=== PATIENT | male | born 1945 | race African-American/Black ===

== ENCOUNTER 2021-07-05 15:57 | Inpatient (IN) ==
[2021-07-05] MEDS ORDERED: ONDANSETRON 4 MG/2 ML VIAL IV PRN (20:23)
[2021-07-05] MEDS ORDERED: hydrALAZINE 20 MG/1 ML VIAL IV PRN (20:23)
[2021-07-05] MEDS ORDERED: GLUCAGON 1 MG VIAL IM PRN (20:23)
[2021-07-05] MEDS ORDERED: DEXTROSE 50% 25 GM/50 ML SYRINGE IV PRN (20:23)
[2021-07-05] MEDS ORDERED: ACETAMINOPHEN 325 MG TABLET PO PRN (20:23)
[2021-07-05 21:43] LABS: Basophils % 0.3 % (0.0-0.8); Eosinophils # 0.1 10*3/uL (0.0-0.87); Eosinophils % 0.6 % (0.00-10.9); Hematocrit 39.3 VOL% (42.0-52.0); Hemoglobin 11.4 GM/DL (14.0-18.0); Immature Granulocytes % 0.8 %; Immature Granulocytes Absolute 0.09 #; Lymphocytes # 1.7 10*3/uL (1.4-4.0); Lymphocytes % 15.2 % (21.2-54.2); Mean Corpuscular Volume 90.8 FL (87-102); Mean Platelet Volume 13.4 FL (9.6-12.0); Monocytes % 16.3 % (1.7-12.7); Neutrophils % 66.8 % (38.7-73.9); Platelet Count 247 T/CUMM (130-400); Red Blood Count 4.33 MC/CUMM (3.8-5.5); Red Cell Distribution Width 14.9 % (9.3-17.3)
[2021-07-05 21:50] LABS: Eosinophils 1 % (0-10); Hypochromasia Slight; Lymphocytes 16 % (20-55); Platelet Estimate Adequate; Segmented Neutrophils 67 % (50-85); Target Cells Few; Total Cells Counted 100
[2021-07-05 21:50] LABS: Alanine Aminotransferase 26 U/L (16-61); Albumin 2.8 G/DL (3.4-5.0); Alkaline Phosphatase 61 U/L (45-117); Aspartate Amino Transferase 11 U/L (0-37); Bilirubin,Total < 0.39 MG/DL (0.20-1.00); Blood Urea Nitrogen 33 MG/DL (7-18); Carbon Dioxide 30 MMOL/L (21-32); Estimated Glom Filtration Rate 85 ML/MIN; Glucose 230 MG/DL (74-106); Osmolality,Calculated 303.6 MOS/KG (273-304); Potassium 4.3 MMOL/L (3.5-5.1); Sodium 146 MMOL/L (136-145); Thyroid Stimulating Hormone 0.211 uIU/ml (0.358-3.74); Total Protein 8.1 G/DL (6.4-8.2)
[2021-07-05] MEDS: SODIUM CHLORIDE 0.9% 1,000 ML IV SCH (21:57)
[2021-07-05] MEDS: INSULIN REGULAR 100 UNIT/ML SUBCUT SCH (21:57)
[2021-07-05] MEDS: PIPERACILLIN/TAZOBACTAM 3,375 MG in SODIUM CHLORIDE 0.9% 100 ML IV SCH (21:57)
[2021-07-05] MEDS: ENOXAPARIN 40 MG/0.4 ML SYRINGE SUBCUT SCH (21:59)
[2021-07-06 03:11] LABS: Alanine Aminotransferase 23 U/L (16-61); Albumin 2.9 G/DL (3.4-5.0); Alkaline Phosphatase 62 U/L (45-117); Aspartate Amino Transferase 14 U/L (0-37); Bilirubin,Total < 0.39 MG/DL (0.20-1.00); Blood Urea Nitrogen 34 MG/DL (7-18); Calcium 9.1 MG/DL (8.5-10.1); Carbon Dioxide 32 MMOL/L (21-32); Estimated Glom Filtration Rate 78 ML/MIN; Glucose 216 MG/DL (74-106); Osmolality,Calculated 300.8 MOS/KG (273-304); Potassium 4.3 MMOL/L (3.5-5.1); Sodium 144 MMOL/L (136-145)
[2021-07-06 03:12] LABS: Basophils % 0.3 % (0.0-0.8); Eosinophils # 0.1 10*3/uL (0.0-0.87); Eosinophils % 0.9 % (0.00-10.9); Hematocrit 39.7 VOL% (42.0-52.0); Hemoglobin 11.5 GM/DL (14.0-18.0); Immature Granulocytes % 0.5 %; Immature Granulocytes Absolute 0.06 #; Lymphocytes # 1.9 10*3/uL (1.4-4.0); Lymphocytes % 16.1 % (21.2-54.2); Mean Corpuscular Volume 90.4 FL (87-102); Mean Platelet Volume 13.1 FL (9.6-12.0); Monocytes % 15.1 % (1.7-12.7); Neutrophils % 67.1 % (38.7-73.9); Platelet Count 273 T/CUMM (130-400); Red Blood Count 4.39 MC/CUMM (3.8-5.5); Red Cell Distribution Width 14.8 % (9.3-17.3); White Blood Count 11.7 T/CUMM (4-12)
[2021-07-06 03:39] LABS: Free T4 (Free Thyroxine) 1.14 NG/DL (0.76-1.46)
[2021-07-06] MEDS: PIPERACILLIN/TAZOBACTAM 3,375 MG in SODIUM CHLORIDE 0.9% 100 ML IV SCH ×3 (06:32→20:34)
[2021-07-06] MEDS: SODIUM CHLORIDE 0.9% 1,000 ML IV SCH ×2 (06:37→20:34)
[2021-07-06] MEDS ORDERED: ALBUTEROL/IPRATROPIUM 3 ML NEB RESP TX PRN (07:40)
[2021-07-06] MEDS: PANTOPRAZOLE 40 MG VIAL IV SCH (10:15)
[2021-07-06] MEDS: INSULIN REGULAR 100 UNIT/ML SUBCUT SCH ×4 (10:16→20:33)
[2021-07-06] MEDS: carvediloL 12.5 MG TABLET PO SCH ×2 (10:16→17:00)
[2021-07-06] MEDS: CARBIDOPA/LEVODOPA 25-100 MG TABLET PO SCH (10:16)
[2021-07-06] MEDS: FERROUS SULFATE 325 MG TABLET PO SCH ×2 (10:16→17:00)
[2021-07-06] MEDS: THYROID 60 MG TABLET PO SCH (10:16)
[2021-07-06] MEDS: ASPIRIN EC 81 MG TABLET PO SCH (10:16)
[2021-07-06] MEDS: TAMSULOSIN 0.4 MG CAPSULE PO SCH (10:16)
[2021-07-06] MEDS ORDERED: BENZOCAINE 20% SPRAY 57 GM CAN TOP PRN (11:29)
[2021-07-06] MEDS: FINASTERIDE 5 MG TABLET PO SCH (17:00)
[2021-07-06] MEDS: ENOXAPARIN 40 MG/0.4 ML SYRINGE SUBCUT SCH (20:34)
[2021-07-07 00:02] LABS: Bacteria,Urine Occasional /HPF (Few); Bilirubin,Urine Negative (Negative); Blood, Urine Negative (Negative); Glucose,Urine (UA) 50 mg/dL (Negative); Hyaline Casts,Urine 9 /LPF (0-3); Ketones,Urine 20 mg/dL (Negative); Mucus,Urine Occasional /LPF (Occasional); Nitrite,Urine Negative (Negative); Protein,Urine Negative; RBC,Urine 1 /HPF (0-4); Squamous Epithelial Cell,Urine Occasional /HPF (0-10); Urine Appearance CLOUDY (Clear); Urine Color Amber (Yellow); Urine Specific Gravity 1.024 (1.001-1.035); Urine Urobilinogen < 2.0 EU/DL (0.2-1.0)
[2021-07-07] MEDS: SODIUM CHLORIDE 0.9% 1,000 ML IV SCH ×2 (01:01→13:44)
[2021-07-07] MEDS: PIPERACILLIN/TAZOBACTAM 3,375 MG in SODIUM CHLORIDE 0.9% 100 ML IV SCH ×3 (05:13→20:15)
[2021-07-07] MEDS: MORPHINE 2 MG/1 ML SYRINGE IV PRN ×2 (05:42→20:14)
[2021-07-07 07:06] LABS: Calcium 8.8 MG/DL (8.5-10.1); Osmolality,Calculated 309.1 MOS/KG (273-304); Potassium 4.3 MMOL/L (3.5-5.1)
[2021-07-07 07:35] LABS: Basophils % 0.3 % (0.0-0.8); Eosinophils # 0.2 10*3/uL (0.0-0.87); Eosinophils % 1.5 % (0.00-10.9); Hematocrit 39.7 VOL% (42.0-52.0); Immature Granulocytes Absolute 0.11 #; Lymphocytes # 1.9 10*3/uL (1.4-4.0); Lymphocytes % 16.6 % (21.2-54.2); Mean Corpuscular Volume 92.5 FL (87-102); Monocytes % 13.8 % (1.7-12.7); Neutrophils % 66.8 % (38.7-73.9); Platelet Count 232 T/CUMM (130-400); Red Blood Count 4.29 MC/CUMM (3.8-5.5); White Blood Count 11.5 T/CUMM (4-12)
[2021-07-07 07:37] LABS: Hemoglobin 11.5 GM/DL (14.0-18.0)
[2021-07-07] MEDS ORDERED: NON-FORMULARY MEDICATION (Nifedipine 60 mg Tablet Extended Release) PO SCH (09:00)
[2021-07-07] MEDS: THYROID 60 MG TABLET PO SCH (10:06)
[2021-07-07] MEDS: PANTOPRAZOLE 40 MG VIAL IV SCH (10:06)
[2021-07-07] MEDS: TAMSULOSIN 0.4 MG CAPSULE PO SCH (10:07)
[2021-07-07] MEDS: CARBIDOPA/LEVODOPA 25-100 MG TABLET PO SCH (10:07)
[2021-07-07] MEDS: INSULIN REGULAR 100 UNIT/ML SUBCUT SCH ×4 (10:07→20:24)
[2021-07-07] MEDS: FERROUS SULFATE 325 MG TABLET PO SCH ×2 (10:07→16:02)
[2021-07-07] MEDS: carvediloL 12.5 MG TABLET PO SCH ×2 (10:07→16:02)
[2021-07-07] MEDS: ASPIRIN EC 81 MG TABLET PO SCH (10:07)
[2021-07-07] MEDS: FINASTERIDE 5 MG TABLET PO SCH (10:07)
[2021-07-07] MEDS: SODIUM CHLORIDE 23.4% CONC INJ 38.5 MEQ in STERILE WATER INJ 1,000 ML IV SCH ×2 (11:55→20:15)
[2021-07-07] MEDS: ENOXAPARIN 40 MG/0.4 ML SYRINGE SUBCUT SCH (20:15)
[2021-07-08] MEDS: PIPERACILLIN/TAZOBACTAM 3,375 MG in SODIUM CHLORIDE 0.9% 100 ML IV SCH ×3 (04:50→20:26)
[2021-07-08] MEDS: SODIUM CHLORIDE 23.4% CONC INJ 38.5 MEQ in STERILE WATER INJ 1,000 ML IV SCH (05:00)
[2021-07-08 05:42] LABS: Calcium 8.5 MG/DL (8.5-10.1); Osmolality,Calculated 308.9 MOS/KG (273-304); Potassium 4.2 MMOL/L (3.5-5.1)
[2021-07-08 06:37] LABS: Basophils # 0.1 10*3/uL (0.0-0.2); Basophils % 0.6 % (0.0-0.8); Eosinophils # 0.3 10*3/uL (0.0-0.87); Eosinophils % 2.1 % (0.00-10.9); Hematocrit 37.4 VOL% (42.0-52.0); Hemoglobin 10.8 GM/DL (14.0-18.0); Immature Granulocytes % 1.3 %; Immature Granulocytes Absolute 0.16 #; Lymphocytes # 2.4 10*3/uL (1.4-4.0); Lymphocytes % 19.3 % (21.2-54.2); Mean Corpuscular HGB Conc 28.9 GM/DL (32-36); Mean Corpuscular Volume 92.1 FL (87-102); Monocytes % 11.4 % (1.7-12.7); Neutrophils % 65.3 % (38.7-73.9); Platelet Count 209 T/CUMM (130-400); Red Blood Count 4.06 MC/CUMM (3.8-5.5); Red Cell Distribution Width 14.9 % (9.3-17.3); White Blood Count 12.6 T/CUMM (4-12)
[2021-07-08] MEDS: INSULIN REGULAR 100 UNIT/ML SUBCUT SCH ×4 (07:30→20:10)
[2021-07-08] MEDS: TAMSULOSIN 0.4 MG CAPSULE PO SCH (10:34)
[2021-07-08] MEDS: FERROUS SULFATE 325 MG TABLET PO SCH ×2 (10:34→17:55)
[2021-07-08] MEDS: CARBIDOPA/LEVODOPA 25-100 MG TABLET PO SCH (10:34)
[2021-07-08] MEDS: PANTOPRAZOLE 40 MG VIAL IV SCH (10:34)
[2021-07-08] MEDS: THYROID 60 MG TABLET PO SCH (10:35)
[2021-07-08] MEDS: FINASTERIDE 5 MG TABLET PO SCH (10:35)
[2021-07-08] MEDS: carvediloL 12.5 MG TABLET PO SCH ×2 (10:35→17:55)
[2021-07-08] MEDS: DEXTROSE 5% 1,000 ML IV SCH (10:45)
[2021-07-08] MEDS: ASPIRIN EC 81 MG TABLET PO SCH (12:01)
[2021-07-08] MEDS: ENOXAPARIN 40 MG/0.4 ML SYRINGE SUBCUT SCH (20:26)
[2021-07-08] MEDS: INSULIN GLARGINE 100 UNIT/ML SUBCUT SCH (20:27)
[2021-07-09] MEDS: DEXTROSE 5% 1,000 ML IV SCH ×2 (04:15)
[2021-07-09] MEDS: PIPERACILLIN/TAZOBACTAM 3,375 MG in SODIUM CHLORIDE 0.9% 100 ML IV SCH ×3 (04:15→20:24)
[2021-07-09 07:21] LABS: Calcium 8.1 MG/DL (8.5-10.1); Osmolality,Calculated 285.3 MOS/KG (273-304); Potassium 3.8 MMOL/L (3.5-5.1)
[2021-07-09 07:24] LABS: Basophils % 0.4 % (0.0-0.8); Eosinophils # 0.4 10*3/uL (0.0-0.87); Eosinophils % 3.8 % (0.00-10.9); Hematocrit 34.8 VOL% (42.0-52.0); Immature Granulocytes % 2.1 %; Immature Granulocytes Absolute 0.22 #; Lymphocytes # 2.5 10*3/uL (1.4-4.0); Lymphocytes % 23.4 % (21.2-54.2); Mean Corpuscular HGB Conc 29.3 GM/DL (32-36); Mean Corpuscular Volume 90.9 FL (87-102); Mean Platelet Volume 12.9 FL (9.6-12.0); Monocytes % 10.7 % (1.7-12.7); Neutrophils % 59.6 % (38.7-73.9); Platelet Count 197 T/CUMM (130-400); Red Blood Count 3.83 MC/CUMM (3.8-5.5); Red Cell Distribution Width 14.6 % (9.3-17.3); White Blood Count 10.6 T/CUMM (4-12)
[2021-07-09 07:31] LABS: Hemoglobin 10.2 GM/DL (14.0-18.0)
[2021-07-09 08:09] LABS: Platelet Estimate Normal
[2021-07-09 08:10] LABS: Anisocytosis 1+; Macrocytosis 1+; Target Cells Few
[2021-07-09] MEDS: PANTOPRAZOLE 40 MG VIAL IV SCH (08:25)
[2021-07-09] MEDS: carvediloL 12.5 MG TABLET PO SCH ×2 (08:25→16:27)
[2021-07-09] MEDS: FERROUS SULFATE 325 MG TABLET PO SCH ×2 (08:25→16:27)
[2021-07-09] MEDS: TAMSULOSIN 0.4 MG CAPSULE PO SCH (08:25)
[2021-07-09] MEDS: ASPIRIN EC 81 MG TABLET PO SCH (08:25)
[2021-07-09] MEDS: FINASTERIDE 5 MG TABLET PO SCH (08:25)
[2021-07-09] MEDS: THYROID 60 MG TABLET PO SCH (08:25)
[2021-07-09] MEDS: CARBIDOPA/LEVODOPA 25-100 MG TABLET PO SCH (08:25)
[2021-07-09] MEDS: INSULIN REGULAR 100 UNIT/ML SUBCUT SCH ×4 (08:40→20:29)
[2021-07-09] MEDS: FUROSEMIDE 40 MG TABLET PO SCH (16:27)
[2021-07-09] MEDS: INSULIN GLARGINE 100 UNIT/ML SUBCUT SCH (20:26)
[2021-07-09] MEDS: ENOXAPARIN 40 MG/0.4 ML SYRINGE SUBCUT SCH (20:26)
[2021-07-09] MEDS: POTASSIUM CHLORIDE 20 MEQ TABLET PO SCH (20:26)
[2021-07-10] MEDS: PIPERACILLIN/TAZOBACTAM 3,375 MG in SODIUM CHLORIDE 0.9% 100 ML IV SCH ×3 (04:24→21:42)
[2021-07-10 06:08] LABS: Basophils % 0.3 % (0.0-0.8); Eosinophils # 0.3 10*3/uL (0.0-0.87); Eosinophils % 3.2 % (0.00-10.9); Hematocrit 33.5 VOL% (42.0-52.0); Immature Granulocytes % 0.9 %; Immature Granulocytes Absolute 0.09 #; Lymphocytes # 2.4 10*3/uL (1.4-4.0); Lymphocytes % 24.6 % (21.2-54.2); Mean Corpuscular HGB Conc 29.9 GM/DL (32-36); Mean Corpuscular Volume 89.6 FL (87-102); Monocytes % 9.4 % (1.7-12.7); Neutrophils % 61.6 % (38.7-73.9); Platelet Count 186 T/CUMM (130-400); Red Blood Count 3.74 MC/CUMM (3.8-5.5); Red Cell Distribution Width 14.3 % (9.3-17.3); White Blood Count 9.8 T/CUMM (4-12)
[2021-07-10 06:28] LABS: Calcium 8.2 MG/DL (8.5-10.1); Osmolality,Calculated 281.4 MOS/KG (273-304); Potassium 3.5 MMOL/L (3.5-5.1)
[2021-07-10] MEDS: PANTOPRAZOLE 40 MG VIAL IV SCH (08:51)
[2021-07-10] MEDS: POTASSIUM CHLORIDE 20 MEQ TABLET PO SCH ×2 (08:51→21:41)
[2021-07-10] MEDS: FUROSEMIDE 40 MG TABLET PO SCH ×2 (08:52→16:26)
[2021-07-10] MEDS: THYROID 60 MG TABLET PO SCH (08:52)
[2021-07-10] MEDS: TAMSULOSIN 0.4 MG CAPSULE PO SCH (08:52)
[2021-07-10] MEDS: INSULIN REGULAR 100 UNIT/ML SUBCUT SCH ×4 (08:53→21:40)
[2021-07-10] MEDS: GABAPENTIN 600 MG TABLET PO SCH ×3 (08:53→21:41)
[2021-07-10] MEDS: carvediloL 12.5 MG TABLET PO SCH ×2 (08:53→16:25)
[2021-07-10] MEDS: FINASTERIDE 5 MG TABLET PO SCH (08:53)
[2021-07-10] MEDS: ASPIRIN EC 81 MG TABLET PO SCH (08:53)
[2021-07-10] MEDS: FERROUS SULFATE 325 MG TABLET PO SCH ×2 (08:53→16:25)
[2021-07-10] MEDS: CARBIDOPA/LEVODOPA 25-100 MG TABLET PO SCH (08:53)
[2021-07-10] MEDS: INSULIN GLARGINE 100 UNIT/ML SUBCUT SCH (21:41)
[2021-07-10] MEDS: ENOXAPARIN 40 MG/0.4 ML SYRINGE SUBCUT SCH (21:42)
[2021-07-11] MEDS: PIPERACILLIN/TAZOBACTAM 3,375 MG in SODIUM CHLORIDE 0.9% 100 ML IV SCH (05:14)
[2021-07-11 05:41] LABS: Basophils % 0.3 % (0.0-0.8); Eosinophils # 0.3 10*3/uL (0.0-0.87); Hematocrit 34.3 VOL% (42.0-52.0); Hemoglobin 10.2 GM/DL (14.0-18.0); Immature Granulocytes % 1.8 %; Immature Granulocytes Absolute 0.16 #; Lymphocytes # 2.3 10*3/uL (1.4-4.0); Lymphocytes % 25.4 % (21.2-54.2); Mean Corpuscular HGB Conc 29.7 GM/DL (32-36); Mean Corpuscular Volume 88.9 FL (87-102); Monocytes % 9.1 % (1.7-12.7); Neutrophils % 60.4 % (38.7-73.9); Platelet Count 166 T/CUMM (130-400); Red Blood Count 3.86 MC/CUMM (3.8-5.5); Red Cell Distribution Width 14.2 % (9.3-17.3)
[2021-07-11 06:08] LABS: Calcium 7.8 MG/DL (8.5-10.1); Osmolality,Calculated 283.1 MOS/KG (273-304); Potassium 3.6 MMOL/L (3.5-5.1)
[2021-07-11 06:58] LABS: Eosinophils 5 % (0-10); Lymphocytes 12 % (20-55); Segmented Neutrophils 74 % (50-85); Total Cells Counted 100
[2021-07-11 06:59] LABS: Platelet Estimate Normal
[2021-07-11 07:01] LABS: Microcytosis 1+
[2021-07-11 07:02] LABS: Stomatocytes Few; Target Cells Slight
[2021-07-11 08:06] VITALS: BP 132/50
[2021-07-11] MEDS: INSULIN REGULAR 100 UNIT/ML SUBCUT SCH ×3 (09:03→11:28)
[2021-07-11] MEDS: TAMSULOSIN 0.4 MG CAPSULE PO SCH (09:03)
[2021-07-11] MEDS: GABAPENTIN 600 MG TABLET PO SCH (09:03)
[2021-07-11] MEDS: FINASTERIDE 5 MG TABLET PO SCH (09:03)
[2021-07-11] MEDS: PANTOPRAZOLE 40 MG VIAL IV SCH (09:03)
[2021-07-11] MEDS: THYROID 60 MG TABLET PO SCH (09:04)
[2021-07-11] MEDS: carvediloL 12.5 MG TABLET PO SCH (09:04)
[2021-07-11] MEDS: ASPIRIN EC 81 MG TABLET PO SCH (09:04)
[2021-07-11] MEDS: FUROSEMIDE 40 MG TABLET PO SCH (09:04)
[2021-07-11] MEDS: FERROUS SULFATE 325 MG TABLET PO SCH (09:04)
[2021-07-11] MEDS: CARBIDOPA/LEVODOPA 25-100 MG TABLET PO SCH (09:04)
[2021-07-11] MEDS: POTASSIUM CHLORIDE 20 MEQ TABLET PO SCH (09:05)
== END 2021-07-11 13:54 | disposition home or self-care (01) | DRG 389 ==
LOC: N.3E 18:51 → SUATTDRO 18:51
PROVIDERS: ADMIT Internal Medicine; ATTEND Internal Medicine